=== PATIENT | female | born 1990 | race Caucasian/White ===

== ENCOUNTER 2021-09-06 11:30 | Day surgery (SDC) | payer SELFPAY ==
[~2021-09-06 11:30] MED LIST: Midazolam 1 MG/ML 2 ML SDV ONE; Propofol 200 MG/20 ML SDV ONE; fentaNYL 100 MCG/2 ML SDV ONE
[2021-09-06] MEDS ORDERED: Sodium Chloride 0.9% 1,000 ML IV SCH (12:00)
[2021-09-06] MEDS ORDERED: Propofol 200 MG/20 ML SDV ONE (12:11)
== END 2021-09-06 14:00 | disposition home or self-care (01) ==
LOC: JP.SDS 11:30
PROVIDERS: ATTEND Surgery
DX: R19.7 Diarrhea, unspecified (principal); K20.90 Esophagitis, unspecified without bleeding
CPT/HCPCS: 81025; 88305; J2250; J2704; J3010; J7030